=== PATIENT | female | born 1990 | race African-American/Black ===

== ENCOUNTER 2016-10-17 12:09 | Emergency (ER) | payer OTHER ==
[~2016-10-17] VITALS: Ht 170.2 cm; Wt 85.5 kg
[~2016-10-17 12:09] MED LIST: AZITHROMYCIN250 MG1 PO; MOTRIN800 MG PO; Motrin PO; Ortho Cyclen 28 PO; PERCOCET 5/31 TABLET PO; Percocet 5/325,Endoc PO
[2016-10-17] MEDS ORDERED: BACTRIM,SEPT1 TABLET PO (13:19)
[2016-10-17] MEDS ORDERED: KEFLEX500 MG PO (13:19)
[2016-10-17] MEDS ORDERED: INDOCIN50 MG PO (13:19)
[2016-10-17 13:46] VITALS: BP 124/68
== END 2016-10-17 13:47 | disposition home or self-care (01) ==
LOC: EME 12:09
DX: L03.115 Cellulitis of right lower limb (principal)
CPT/HCPCS: 99281; 99283

== ENCOUNTER 2016-12-16 21:40 | Emergency (ER) | payer OTHER ==
[~2016-12-16] VITALS: Ht 170.2 cm; Wt 87.9 kg
[~2016-12-16 21:40] MED LIST changes: +BACTRIM,SEPT1 TABLET PO; +INDOCIN50 MG PO; +KEFLEX500 MG PO
[2016-12-16 22:56] LABS: HEMATOCRIT 37.2 % (36.0-46.0); MCHC 33.6 G/DL (30.0-36.0); MCV 89.4 FL (83-99); MEAN PLAT.VOLUME 9.4 uM^3 (9.5-12.4); PLATELET COUNT 259 K/uL (156-360); RBC DIS.WIDTH-CV 11.5 % (11.8-14.6); RBC DIS.WIDTH-SD 37.2 % (39-53); RED BLOOD COUNT 4.16 M/uL (3.80-5.20); WHITE BLOOD COUNT 9.5 K/uL (4.1-10.2)
[2016-12-16 23:05] LABS: CHLORIDE 104 mEq/L (99-109); SODIUM 134 mEq/L (136-147)
[2016-12-16 23:07] LABS: GLUCOSE 87 mg/dL (70-99)
[2016-12-16 23:08] LABS: ANION GAP 7 MEQ/L (2-14)
[2016-12-16 23:11] LABS: GFR ESTIMATE (CALCULATED) > 59 mL/min/
[2016-12-16 23:12] LABS: UREA NITROGEN (BUN) 17 mg/dL (9-23)
[2016-12-16 23:18] LABS: TROP-I INTERPRETATION NEGATIVE; TROPONIN-I < 0.01 ng/mL (0.0-0.30)
[2016-12-17 00:45] LABS: TROP-I INTERPRETATION NEGATIVE; TROPONIN-I < 0.01 ng/mL (0.0-0.30)
[2016-12-17] MEDS ORDERED: ATARAX,VISTARIL50 MG PO (00:54)
[2016-12-17 01:02] VITALS: BP 99/84
== END 2016-12-17 01:03 | disposition home or self-care (01) ==
LOC: EME 21:40
PROVIDERS: Physician Assistant Medical
DX: F41.9 Anxiety disorder, unspecified (principal); R06.02 Shortness of breath; Z63.4 Disappearance and death of family member; R42 Dizziness and giddiness; R11.0 Nausea; Z87.891 Personal history of nicotine dependence
CPT/HCPCS: 71020; 80048; 84484; 85027; 93005; 99281; 99284; Q0177

== ENCOUNTER 2016-12-20 01:12 | Emergency (ER) | payer OTHER ==
[~2016-12-20] VITALS: Ht 170.2 cm; Wt 88.1 kg
[~2016-12-20 01:12] MED LIST changes: +ATARAX,VISTARIL50 MG PO
[2016-12-20 01:17] VITALS: BP 137/87
[2016-12-20] MEDS ORDERED: AUGMENTIN875 MG PO (01:20)
== END 2016-12-20 01:51 | disposition home or self-care (01) ==
LOC: EME 01:12
PROC: 3E0234Z Introduction of Serum, Toxoid and Vaccine into Muscle, Percutaneous Approach (ICD-10-PCS; principal; 2016-12-20)
DX: S91.331A Puncture wound without foreign body, right foot, initial encounter (principal); W45.0XXA Nail entering through skin, initial encounter
CPT/HCPCS: 99281; 99284

== ENCOUNTER 2016-12-23 14:53 | Emergency (ER) | payer OTHER ==
[~2016-12-23] VITALS: Ht 170.2 cm; Wt 85.8 kg
[~2016-12-23 14:53] MED LIST changes: +AUGMENTIN875 MG PO
[2016-12-23 15:05] VITALS: BP 146/94
[2016-12-23 15:39] LABS: HEMATOCRIT 35.4 % (36.0-46.0); MCH 29.8 PG (29.0-34.0); MCHC 33.9 G/DL (30.0-36.0); MCV 87.8 FL (83-99); MEAN PLAT.VOLUME 9.4 uM^3 (9.5-12.4); PLATELET COUNT 296 K/uL (156-360); RBC DIS.WIDTH-CV 11.5 % (11.8-14.6); RED BLOOD COUNT 4.03 M/uL (3.80-5.20); WHITE BLOOD COUNT 10.8 K/uL (4.1-10.2)
[2016-12-23 15:50] LABS: CHLORIDE 106 mEq/L (99-109); POTASSIUM 3.5 mEq/L (3.7-5.4); SODIUM 137 mEq/L (136-147)
[2016-12-23 15:52] LABS: GLUCOSE 99 mg/dL (70-99)
[2016-12-23 15:53] LABS: ANION GAP 9 MEQ/L (2-14)
[2016-12-23 15:56] LABS: GFR ESTIMATE (CALCULATED) > 59 mL/min/
[2016-12-23 15:57] LABS: TROP-I INTERPRETATION NEGATIVE; TROPONIN-I < 0.01 ng/mL (0.0-0.30); UREA NITROGEN (BUN) 11 mg/dL (9-23)
== END 2016-12-23 16:00 | disposition left against medical advice (07) ==
LOC: EME 14:53
DX: R42 Dizziness and giddiness (principal); Z53.21 Procedure and treatment not carried out due to patient leaving prior to being seen by health care provider
CPT/HCPCS: 71020; 80048; 84484; 85027; 93005

== ENCOUNTER 2017-03-23 00:57 | Emergency (ER) | payer OTHER ==
[~2017-03-23] VITALS: Ht 177.8 cm; Wt 87.7 kg
[2017-03-23] MEDS ORDERED: AUGMENTIN875 MG PO (01:57)
[2017-03-23 02:24] VITALS: BP 111/92
== END 2017-03-23 02:24 | disposition home or self-care (01) ==
LOC: EME 00:57
DX: J02.9 Acute pharyngitis, unspecified (principal); J01.90 Acute sinusitis, unspecified
CPT/HCPCS: 87651 90; 99281; 99284

== ENCOUNTER 2017-08-05 16:32 | Emergency (ER) | payer OTHER ==
[~2017-08-05] VITALS: Ht 167.6 cm; Wt 93.0 kg
[2017-08-05 17:26] LABS: HEMATOCRIT 35.7 % (36.0-46.0); HEMOGLOBIN 12.3 G/DL (11.9-15.5); MCH 30.8 PG (29.0-34.0); MCHC 34.5 G/DL (30.0-36.0); MCV 89.3 FL (83-99); PLATELET COUNT 289 K/uL (156-360); RBC DIS.WIDTH-CV 11.7 % (11.8-14.6); RBC DIS.WIDTH-SD 37.6 % (39-53); WHITE BLOOD COUNT 8.4 K/uL (4.1-10.2)
[2017-08-05 17:39] LABS: CHLORIDE 104 mEq/L (99-109); POTASSIUM 3.6 mEq/L (3.7-5.4); SODIUM 137 mEq/L (136-147)
[2017-08-05 17:40] LABS: GLUCOSE 107 mg/dL (70-99)
[2017-08-05 17:44] LABS: CREATININE 0.8 mg/dL (0.6-1.3); GFR ESTIMATE (CALCULATED) > 59 mL/min/
[2017-08-05 17:45] LABS: UREA NITROGEN (BUN) 17 mg/dL (9-23)
[2017-08-05 17:50] LABS: TROP-I INTERPRETATION NEGATIVE; TROPONIN-I < 0.01 ng/mL (0.0-0.30)
[2017-08-05 19:14] VITALS: BP 165/92
== END 2017-08-05 19:14 | disposition home or self-care (01) ==
LOC: EME 16:32
DX: R07.89 Other chest pain (principal); I10 Essential (primary) hypertension; F41.9 Anxiety disorder, unspecified; Z87.891 Personal history of nicotine dependence
CPT/HCPCS: 71046; 80048; 84484; 85027; 93005; 99281; 99284